=== PATIENT | male | born 1935 | race Caucasian/White ===

== ENCOUNTER 2021-11-20 10:26 | Inpatient (IN) | payer MEDICARE, OTHER ==
[~2021-11-20] VITALS: Ht 180.3 cm; Wt 77.6 kg
[2021-11-20] VITALS (338 sets, daily range): BP systolic 85–141; BP diastolic 41–82; PULSE 100–120; TEMP 97.3–98; O2SAT 88–100
[2021-11-20] MEDS ORDERED: VITAMIND3 5000 PO (11:09)
[2021-11-20] MEDS ORDERED: ASPIRIN 81M81 MG/TA2 PO (11:10)
[2021-11-20] MEDS ORDERED: NORVASC 5MG5 MG/TAB PO (11:10)
[2021-11-20] MEDS ORDERED: OMEGA-3 FISH1000 MG PO (11:10)
[2021-11-20] MEDS ORDERED: PLAVIX 75MG TAB75 MG PO (11:11)
[2021-11-20] MEDS ORDERED: COREG 25MG25 MG/TAB PO (11:11)
[2021-11-20] MEDS ORDERED: AVODART 0.5MG0.5 MG PO (11:12)
[2021-11-20] MEDS ORDERED: VITAMIN B11000 MCG/M IM (11:12)
[2021-11-20] MEDS ORDERED: BENICAR40 MG PO (11:13)
[2021-11-20] MEDS ORDERED: SYNTHROID0.125 MG/T PO (11:13)
[2021-11-20] MEDS ORDERED: LIPITOR 40MG TA40 MG PO (11:14)
[2021-11-20] MEDS ORDERED: PROTONIX 40MG T40 MG PO (11:14)
[2021-11-20] MEDS ORDERED: DESYREL DIVIDO150 M1 PO (11:14)
--- NOTE | 2021-11-20 13:30 | NUR ---
Patient admitted to room 323 from [facility]. He is alert & oriented. Minimal complaints of pain, but reports sore throat from tube he had at [facility]. med rec completed from [facility] paperwork, he reports he had a list at there facility. Hospitalist & rounded orders obtained & plan of care reviewed. Medications given per orders and tele on. Patient tachycardic and requring O2, which is new for patient. Ekg completed as well as breathing treatment by RT. Plans for OR this afternoon, he remains NPO. He was provided with bedbath, refused to brush his teeth reports he may vomit if he does. Will monitor
--- NOTE | 2021-11-20 15:41 | NUR ---
Patient to the Or with Xiao. His family to Or waiting room. Ivf to gravity. Will await his return.
--- NOTE | 2021-11-20 17:04 | NUR ---
Report called to [facility] nurse Chelo. Patient Belongings taken to [facility] by Yana Pacu nurse.
[2021-11-20 23:17] LABS: ARTERIAL BLD GAS O2 SATURATION 95.5 % (92-100); ARTERIAL BLD GAS TCO2 CT 21.2; ARTERIAL BLOOD GAS HCO3 20.2 meq/L (22-26); ARTERIAL BLOOD GAS PCO2 33.6 mmHg (35-45); ARTERIAL BLOOD GAS PO2 83.5 mmHg (80-100)
[2021-11-21] VITALS (1434 sets, daily range): BP systolic 91–125; BP diastolic 46–57; PULSE 70–98; TEMP 97–98.1; O2SAT 98–100
--- NOTE | 2021-11-21 05:13 | NUR ---
SEDATION VACATION PATIENT WOKE UP EASILY OFF OF SEDATION. PATIENT FOLLOWS COMMANDS AND IS APPROPRIATE WITH YES AND NO ANSWERS. PATIENT IS NOT IMPULSIVE. PATIENT TOLERATED FOR FULL 30 MINUTES. SEDATION RESUMED.
[2021-11-21 05:38] LABS: ARTERIAL BLD GAS O2 SATURATION 98.9 % (92-100); ARTERIAL BLD GAS TCO2 CT 20.8; ARTERIAL BLOOD GAS BASE EXCESS -4.7 (-2-2); ARTERIAL BLOOD GAS HCO3 19.7 meq/L (22-26); ARTERIAL BLOOD GAS PCO2 33.8 mmHg (35-45); ARTERIAL BLOOD GAS pH 7.38 (7.35-7.45)
[2021-11-21 05:40] LABS: ARTERIAL BLOOD GAS PO2 161.9 mmHg (80-100)
[2021-11-21 06:09] LABS: MEAN CELL VOLUME 97 fl (80.0-100.0); MEAN CORPUSCULAR HGB CONC 34 g/dl (33.0-37.0); PLATELET COUNT 194 K/mm3 (130-400); RED BLOOD COUNT 2.76 M/mm3 (4.20-5.60); REDCELL DISTRIBUTION WIDTH-CV 13.1 % (11.5-14.5)
[2021-11-21 06:14] LABS: HEMATOCRIT 26.7 % (42.0-52.0); HEMOGLOBIN 9.1 g/dl (13.5-18.0); MEAN CORPUSCULAR HEMOGLOBIN 33 pg (27-31)
[2021-11-21 06:33] LABS: BAND 32 % (0-10); LYMPHOCYTE 22 % (20.0-51.0); NEUTROPHILS 40 % (42.0-75.2)
[2021-11-21 06:34] LABS: BURR CELLS 1+; OVALOCYTES 1+; PLATELET ESTIMATE NORMAL (NORMAL); SCHISTOCYTES 1+
[2021-11-21 06:35] LABS: ALBUMIN 2.1 gm/dL (3.4-4.8); BILIRUBIN,TOTAL 0.7 mg/dL (0.2-1.2); CALCIUM 7.9 mg/dL (8.4-10.2); CREATININE, serum 3.54 mg/dL (0.72-1.25); MAGNESIUM 1.4 mg/dL (1.6-2.6); POTASSIUM 3.2 mmol/L (3.5-4.5); TOTAL PROTEIN 4.7 gm/dL (6.2-8.1)
--- NOTE | 2021-11-21 07:00 | NUR ---
REPORT RECEIVED FROM SADAF GOSS. PT INTUBATED AND SEDATED AT THIS TIME; 7.0 ETT 22CM AT LIP WITH CURRENT VENT SETTINGS; AC MODE, TV 500, PEEP 8, FIO2 40%, AND RATE OF 20. PT ACCEPTING MECHANICAL VENTILATION. NG TUBE 55CM AT LEFT NARE; NG TO LIS. RIJ TLC IN PLACE WITH MEDICATIONS INFUSING; SEE GTT FLOW SHEET. 20G PIV TO RIGHT WRIST. LEFT RADIAL ART LINE IN PLANCE. FC TO DEPENDENT DRAINAGE. BILATERAL SOFT WRIST RESTRAINTS IN PLACE. ABDOMINAL LAP SITES X3 COVERED WITH BANDAIDS; NO DRAINAGE OR REDNESS PRESENT. PT APPEARS TO BE RESTING COMFORTABLY; NO S/S DISCOMFORT.
--- NOTE | 2021-11-21 10:32 | NUR ---
The patient was placed on the ventilator after surgery yesterday. He remains intubated. The patient's son, Maxx (ph#[phone]), is at bedside. SW met with Maxx to complete intake. The patient lives alone in [place]. Maxx states that the patient has been independent prior to hospitalization and does not have any DME. The patient's PCP is Dr. Paulo Hyde. Maxx states that the patient has a financial DPOA and that the patient designated him, but he is unsure if the patient ever completed a DPOA-HC. Maxx states that the patient is and that he has two children: himself and Zane (ph#[phone]). Maxx states that the patient and Zane do not get along well, but that he still talks to Zane and has kept him up-to-date on the patient's status here. SW informed Maxx that him and Zane are both the patient's legal next of kin, if there is not a DPOA-HC. Maxx verbalized understanding. Maxx states that the patient and him were talking about the patient going to rehab, prior to being admitted. They are interested in a facility closer to where Maxx lives. Maxx lives in [place]. He states that they would prefer 1) [facility] 2) [facility]. YULISSA contacted and faxed a referral to Prerna at [facility]. YULISSA attempted to contact [facility]. YULISSA left them a voicemail and faxed over the referral. Awaiting screens. YULISSA contacted registration at [facility]. The vacuum drum drier operator reports that they do have a DPOA-HC on file for the patient and will fax it to the ICU. The vacuum drum drier operator states that the form designates Zane. [facility]: [facility] ph#[phone], fx#[phone] [facility]: ph#[phone], fx#[phone] *Discharge plan: SB or SNF*
--- NOTE | 2021-11-21 13:02 | NUR ---
SW received the patient's DPOA-HC, via fax. The patient's DPOA-HC is his son, Maxx Ray, and his step-daughter, Erica Balbuena (ph#[phone]). SW to place the document in the patient's chart and update the patient's RN.
--- NOTE | 2021-11-21 16:36 | NUR ---
Glendy, at [facility], states that they are at capacity at this time and unable to take the patient at this time.
--- NOTE | 2021-11-21 17:53 | NUR ---
PT ABLE TO FOLLOW COMMANDS AND ANSWER QUESTIONS WITH EASE; NO SEDATION VACATION NEEDED AT THIS TIME.
[2021-11-21 18:36] LABS: CALCIUM 7.6 mg/dL (8.4-10.2); CREATININE, serum 3.34 mg/dL (0.72-1.25)
--- NOTE | 2021-11-21 21:19 | NUR ---
BEDSIDE SHIFT REPORT RECEIVED FROM BHAVIK TALAVERA. PT CURRENTLY VENT/SEDATED. VENT SETTINGS APPROPRIATE ACCORDING TO REPORT. ALL LINES RUNNING APPROPRIATELY (SEE DRIP FLOW SHEET). SIDDIQI IN PLACE AND DRAINING APPROPRIATELY. VSS, NO ACUTE CHANGES AT THIS TIME.
[2021-11-22] VITALS (1410 sets, daily range): BP systolic 115–143; BP diastolic 45–74; PULSE 59–88; TEMP 97.1–97.8; O2SAT 98–100
[2021-11-22 05:10] LABS: ARTERIAL BLD GAS O2 SATURATION 98.1 % (92-100); ARTERIAL BLD GAS TCO2 CT 18.8; ARTERIAL BLOOD GAS BASE EXCESS -7.7 (-2-2); ARTERIAL BLOOD GAS HCO3 17.7 meq/L (22-26); ARTERIAL BLOOD GAS PCO2 35.1 mmHg (35-45); ARTERIAL BLOOD GAS PO2 126.8 mmHg (80-100); ARTERIAL BLOOD GAS pH 7.32 (7.35-7.45)
--- NOTE | 2021-11-22 05:26 | NUR ---
SEDATION VACATION NOT PERFORMED AT THIS TIME. PT IS ALERT AND FOLLOWING COMMANDS/ANSWERING QUESTIONS WHILE REMAINING CALM ON CURRENT LEVEL OF SEDATION
[2021-11-22 06:11] LABS: MEAN CELL VOLUME 98 fl (80.0-100.0); MEAN CORPUSCULAR HGB CONC 34 g/dl (33.0-37.0); MEAN PLATELET VOLUME 10.2 fl (7.4-10.4); PLATELET COUNT 138 K/mm3 (130-400); RED BLOOD COUNT 2.54 M/mm3 (4.20-5.60); REDCELL DISTRIBUTION WIDTH-CV 13.1 % (11.5-14.5)
[2021-11-22 06:14] LABS: HEMATOCRIT 24.8 % (42.0-52.0); HEMOGLOBIN 8.3 g/dl (13.5-18.0); MEAN CORPUSCULAR HEMOGLOBIN 33 pg (27-31)
[2021-11-22 06:27] LABS: ALBUMIN 1.9 gm/dL (3.4-4.8); BILIRUBIN,TOTAL 0.6 mg/dL (0.2-1.2); CALCIUM 7.2 mg/dL (8.4-10.2); CREATININE, serum 3.25 mg/dL (0.72-1.25); MAGNESIUM 2.1 mg/dL (1.6-2.6); PHOSPHOROUS 4.2 mg/dL (2.3-4.7); POTASSIUM 3.6 mmol/L (3.5-4.5); TOTAL PROTEIN 4.7 gm/dL (6.2-8.1)
[2021-11-22 06:48] LABS: BAND 31 % (0-10); LYMPHOCYTE 7 % (20.0-51.0); NEUTROPHILS 61 % (42.0-75.2); SCHISTOCYTES 1+
[2021-11-22 06:49] LABS: OVALOCYTES 1+; PLATELET ESTIMATE DECREASED (NORMAL)
--- NOTE | 2021-11-22 09:55 | NUR ---
YULISSA met with the patient's son, Maxx, to update about finding the [facility]- and of [facility]. Maxx reports that he would be open to the facility in [place] as another option. YULISSA contacted and faxed a referral to Karena at [facility] in [place]. [facility]: Karena, #[phone] fax#[phone]
--- NOTE | 2021-11-22 10:50 | NUR ---
Karena, at [facility], states that she received the referral and that they are able to accept the patient for a skilled stay. She states that the patient's son would need to look at getting the patient established with a PCP in [place] or [place], closer to them. YULISSA contacted and updated the patient's son, Maxx. Maxx verbalized understanding. He is still kind of looking at [facility] first, but states he would look at a PCP at the [facility]. SW to fax updates to [facility].
--- NOTE | 2021-11-22 18:26 | NUR ---
SEDATION VACATION NOT PERFORMED PATIENT IS COMFORTABLE, ANSWERS QUESTIONS, OPENS EYES SPONTANEOUSLY, FOLLOWS COMMANDS.
[2021-11-23] VITALS (1303 sets, daily range): BP systolic 97–172; BP diastolic 40–92; PULSE 60–93; TEMP 96.8–98.8; O2SAT 64–100
[2021-11-23 04:47] LABS: MEAN CELL VOLUME 97 fl (80.0-100.0); MEAN CORPUSCULAR HGB CONC 33 g/dl (33.0-37.0); MEAN PLATELET VOLUME 10.2 fl (7.4-10.4); PLATELET COUNT 95 K/mm3 (130-400); REDCELL DISTRIBUTION WIDTH-CV 13.2 % (11.5-14.5)
[2021-11-23 04:58] LABS: HEMATOCRIT 21.3 % (42.0-52.0); HEMOGLOBIN 7.1 g/dl (13.5-18.0); MEAN CORPUSCULAR HEMOGLOBIN 32 pg (27-31)
[2021-11-23 05:07] LABS: BAND 23 % (0-10); LYMPHOCYTE 2 % (20.0-51.0); NEUTROPHILS 73 % (42.0-75.2)
[2021-11-23 05:08] LABS: BURR CELLS 1+; PLATELET ESTIMATE NORMAL (NORMAL)
[2021-11-23 05:09] LABS: ARTERIAL BLD GAS O2 SATURATION 96.4 % (92-100); ARTERIAL BLD GAS TCO2 CT 20.6; ARTERIAL BLOOD GAS BASE EXCESS -5.3 (-2-2); ARTERIAL BLOOD GAS HCO3 19.5 meq/L (22-26); ARTERIAL BLOOD GAS PCO2 34.8 mmHg (35-45); ARTERIAL BLOOD GAS PO2 90.3 mmHg (80-100); ARTERIAL BLOOD GAS pH 7.37 (7.35-7.45)
[2021-11-23 05:10] LABS: ALBUMIN 1.6 gm/dL (3.4-4.8); BILIRUBIN,TOTAL 0.4 mg/dL (0.2-1.2); CALCIUM 7.3 mg/dL (8.4-10.2); CREATININE, serum 3.38 mg/dL (0.72-1.25); POTASSIUM 3.6 mmol/L (3.5-4.5); TOTAL PROTEIN 4.2 gm/dL (6.2-8.1)
--- NOTE | 2021-11-23 05:19 | NUR ---
PATIENT IS ON LOW DOSES OF ANALGESIA/ CAN BE ALERT AND AWAKEN UP VERBAL STIMULI ALSO FOLLOW DIRECTIONS AND USES FACIAL EXPRESSIONS
[2021-11-23 05:33] LABS: MAGNESIUM 2.1 mg/dL (1.6-2.6)
--- NOTE | 2021-11-23 07:33 | NUR ---
RECEIVED BEDSIDE SHIFT REPORT FROM SADAF FRAZIER. PATIENT IS STILL SEDATED AND INTUBATED. VITAL SIGNS STABLE. SEE GTT TITRATION FLOWSHEET. WILL BE ASSESSING PATIENT'S ABILITY TO BREATHE ON HIS OWN PRIOR TO EXTUBATION. SIDDIQI CATHETER AND ALL INTRAVENOUS ACCESS STILL IN PLACE.
--- NOTE | 2021-11-23 10:08 | NUR ---
PATIENT'S SON AT BEDSIDE. GIVEN UPDATE AND ANSWERED QUESTIONS.
--- NOTE | 2021-11-23 11:05 | NUR ---
SPOKE TO SADAF HIGH ABOUT SEDATION AND PROCEEDED TO PLACE PT ON CPAP TRIAL OF 5/5 STILL REMAINING AT 30%. PT IS TOLERATING WELL AND SHOWING GOOD EFFORT. PT WILL REMAIN ON CPAP TRIAL TOLERATED OR UNTIL DIRECTED OTHERWISE.
--- NOTE | 2021-11-23 11:27 | NUR ---
CUT BACK ON SEDATION AND PATIENT IS MORE ALERT TO RESUME WEANING TRIAL. PATIENT TOLERATING BREATHING INDEPENDENTLY AND HITTING [employer]ARGET TITAL VOLUMES. BOTH SONS AT BEDSIDE. QUESTIONS ANSWERED.
--- NOTE | 2021-11-23 11:30 | NUR ---
COLLABORATING WITH MARIE LESTER ON PLAN FOR EXTUBATION TO KEEP PATIENT'S NUTRITIONAL NEEDS MET. THIS NURSE CALLED DR. SAHIKH FOR A REQUEST FOR A FULL LIQUID DIET SHOULD PATIENT BE EXTUBATED TODAY. HE IS AGREEABLE
--- NOTE | 2021-11-23 12:16 | NUR ---
RT CALLED TO BEDSIDE FOR EXTUBATION PER . PT EXTUABTED AND IS COMFORTABLY RESTING. PT EXTUBATED AT 1151.
--- NOTE | 2021-11-23 18:02 | NUR ---
SPOKE TO AILEEN RIVERS REGARDING PATIENT'S PLAN OF CARE. SWITCHED TO PO PAIN MEDICATION AND ACHS BLOOD SUGAR CHECKS.
[2021-11-23 18:47] LABS: HEMATOCRIT 29.1 % (42.0-52.0); HEMOGLOBIN 9.9 g/dl (13.5-18.0)
--- NOTE | 2021-11-23 19:40 | NUR ---
TX GIVEN VIA MASK, TOLERATED WELL.
--- NOTE | 2021-11-23 20:01 | NUR ---
CALL TO AILEEN GARCIA ABOUT RESTARTING PT'S HOME MEDICATIONS, ESPECIALLY HOME BP MEDS BP 172/88 AT THIS TIME.
--- NOTE | 2021-11-23 20:15 | NUR ---
PT CRYING OUT IN PAIN, STATES ABDOMEN BURNING, HURTING SO BAD. MORPHINE AND ZOFRAN GIVEN PER PRN ORDER, PT REPOSITIONED TO LEFT SIDE TO ASSIST WITH GAS MOVEMENT, GIVEN WARM BLANKET TO LAY OVER ABDOMEN. WILL CONTINUE TO MONITOR AND FOLLOW UP IF MEDICATION NOT EFFECTIVE.
--- NOTE | 2021-11-23 21:56 | NUR ---
PT ASSISTED INTO RECLINER, USING GAIT BELT AND 2 PERSON ASSIST. PT STOOD AND TRANSFERRED WELL. PT HOPING TO ALLEVIATE DISCOMFORT BY SITTING UP. HAS BELCHED SOME, TRYING TO PASS FLATUS. WILL CONTINUE TO MONITOR.
[2021-11-24] VITALS (711 sets, daily range): BP systolic 136–150; BP diastolic 62–87; PULSE 63–82; TEMP 97–98.7; O2SAT 72–100
--- NOTE | 2021-11-24 04:18 | NUR ---
PT STILL UP IN CHAIR, PREFERS FOR COMFORT AND DOES NOT WANT TO GO BACK TO BED. FEELS COOL, BUT STATES IS COMFORTABLE AND DOES NOT NEED ADDITIONAL BLANKETS. PT HAS BEEN TALKING ABOUT SEEING MASSIMO AND REMEMBERING HIS . DENIES PAIN OR DISCOMFORT. VSS. WILL CONTINUE TO MONITOR.
[2021-11-24 04:38] LABS: HEMOGLOBIN 10.2 g/dl (13.5-18.0); MEAN CELL VOLUME 93 fl (80.0-100.0); MEAN CORPUSCULAR HEMOGLOBIN 32 pg (27-31); MEAN CORPUSCULAR HGB CONC 35 g/dl (33.0-37.0); MEAN PLATELET VOLUME 10.5 fl (7.4-10.4); PLATELET COUNT 82 K/mm3 (130-400); RED BLOOD COUNT 3.15 M/mm3 (4.20-5.60); REDCELL DISTRIBUTION WIDTH-CV 14.3 % (11.5-14.5)
[2021-11-24 04:51] LABS: CREATININE, serum 3.28 mg/dL (0.72-1.25); POTASSIUM 3.6 mmol/L (3.5-4.5)
[2021-11-24 05:11] LABS: HEMATOCRIT 29.3 % (42.0-52.0)
[2021-11-24 05:40] LABS: BAND 1 % (0-10); LYMPHOCYTE 2 % (20.0-51.0); NEUTROPHILS 96 % (42.0-75.2)
[2021-11-24 05:41] LABS: BURR CELLS 1+; PLATELET ESTIMATE DECREASED (NORMAL)
--- NOTE | 2021-11-24 07:16 | NUR ---
RECEIVED BEDSIDE SHIFT REPORT FROM SADAF MELARA. PATIENT IS IN THE CHAIR RESTING WITH EYES CLOSED. PATIENT'S VITAL SIGNS ARE STABLE AND SIDDIQI CATHETER STILL AND CENTRAL LINES STILL IN PLACE, PATENT AND DRAINING TO GRAVITY/GOOD BLOOD RETURN. CALL LIGHT WITHIN REACH.
--- NOTE | 2021-11-24 10:19 | NUR ---
DR. GALLOWAY AT BEDSIDE TO SEE PATIENT. GOT PERMISSION TO PULL URINARY CATHETER. GIVEN UPDATE AND PLAN OF CARE DISCUSSED. AGREEABLE FOR TRANSFER TODAY TO MED/SURG FLOOR.
--- NOTE | 2021-11-24 15:42 | NUR ---
Pt. escorted to Surg. Unit by ICU nursing staff. Pt. assisted to recliner. Three lap sites noted, covered by bandaids that are CDI. Pt. is alert and oriented to self and place. Daughter has accompainied pt. to unit - orientation to room provided to pt. and daughter. Call light is within his reach
--- NOTE | 2021-11-24 17:55 | NUR ---
Per hand off report, pt's cutler was dc'd this morning. Pt. has not yet urinated. Bladder scan performed and was noted have approx 140 mL urine. Pt. reports a "slight" sensation to urinate but is unsure if he can urinate at this time. Will continue to monitor
--- NOTE | 2021-11-24 18:48 | NUR ---
Pt. assisted from recliner to bed. Bed alarm is turned on. Pt. denies the urge to urinate. Denies pain or discomfort. Call light is within his reach.
--- NOTE | 2021-11-24 20:30 | NUR ---
PT IN BED, IS ALERT, ORIENTED X3. HAS RT PICC AND RIJ, LUMENS FLUSH WITHOUT PROBLEM. HAS EDEMA TO SCROTUM, PENIS AND LOWER LEGS. SCDS ON. PT HAS NOT VOIDED SINCE SIDDIQI REMOVED. DENIES PAIN. ABD DISTENDED WITH BANDAIDS X3 TO ABD. PASSING GAS.
[2021-11-25 00:12] VITALS: BP 156/78; PULSE 67; TEMP 97.3
--- NOTE | 2021-11-25 00:30 | NUR ---
PT ASSISTED TO BSC WITH MAX 2 ASSIST, ABLE TO VOID 300CC OF YELLOW URINE. GENITALS EDEMATOUS. BACK TO BED, URINAL AT BEDSIDE. DENIES PAIN.
[2021-11-25 04:34] VITALS: BP 148/76; PULSE 76; TEMP 97.5
--- NOTE | 2021-11-25 06:00 | NUR ---
PT ABLE TO USE URINAL WITH ASSIST, VOIDS 300CC YELLOW URINE. LABS DRAWN FROM RT PICC, IV ZOSYN INFUSING WITHOUT PROBLEM.
[2021-11-25 06:45] LABS: HEMOGLOBIN 11.4 g/dl (13.5-18.0); MEAN CELL VOLUME 92 fl (80.0-100.0); MEAN CORPUSCULAR HEMOGLOBIN 31 pg (27-31); MEAN CORPUSCULAR HGB CONC 34 g/dl (33.0-37.0); MEAN PLATELET VOLUME 11.2 fl (7.4-10.4); PLATELET COUNT 70 K/mm3 (130-400); RED BLOOD COUNT 3.65 M/mm3 (4.20-5.60); REDCELL DISTRIBUTION WIDTH-CV 14.2 % (11.5-14.5)
[2021-11-25 07:04] LABS: HEMATOCRIT 33.6 % (42.0-52.0)
[2021-11-25 07:09] LABS: ALBUMIN 1.8 gm/dL (3.4-4.8); BILIRUBIN,TOTAL 0.6 mg/dL (0.2-1.2); CALCIUM 8.3 mg/dL (8.4-10.2); CREATININE, serum 3.2 mg/dL (0.72-1.25); PHOSPHOROUS 3.3 mg/dL (2.3-4.7); POTASSIUM 3.7 mmol/L (3.5-4.5); TOTAL PROTEIN 4.8 gm/dL (6.2-8.1)
[2021-11-25 07:40] VITALS: BP 154/71; PULSE 79; TEMP 97.9
[2021-11-25 07:52] LABS: BAND 1 % (0-10); BURR CELLS 1+; LYMPHOCYTE 2 % (20.0-51.0); NEUTROPHILS 96 % (42.0-75.2); PLATELET ESTIMATE DECREASED (NORMAL); SCHISTOCYTES 2+
--- NOTE | 2021-11-25 08:34 | NUR ---
PT'S O2 SATS 85% ON 2L O2. PT ASKED TO COUGH ET BREATHE, HOB RAISED, SATS REMAIN LOW. OXYGEN INCREASED TO 4L, SATS INCREASE TO 90%. LUNGS SOUNDS ARE DIMINISHED.
[2021-11-25 08:39] LABS: PATHOLOGY DIFF REVIEW OK
--- NOTE | 2021-11-25 10:46 | NUR ---
PT SITTING UP IN RECLINER CHAIR @ THIS TIME. RESTING WITH EYES CLOSED. OXYGEN ON @ 4L, RESPIRATIONS UNLABORED. PT WAS PIVOT TRANSFERRED TO CHAIR WITH MAXIMUM 2 PERSON ASSIST ET GAIT BELT. PT REQUIRES LOTS OF ENCOURAGEMENT TO PARTICIPATE IN ACTIVITY. PT'S SPEECH IS SLURRED ET SOMETIMES DIFFICULT TO UNDERSTAND. PT IS ORIENTED TO PLACE, OFTEN STATES THAT HE DOES NOT KNOW WHAT IS GOING ON EXACTLY. ABDOMINAL INCISIONS ARE COVERED BY CDI BAND-AIDS. PT HAS BEEN INCONTINENT OF URINE X1, CIARA CARE COMPLETED ET LINENS CHANGED. PT HAS GENERALIZED PITTING EDEMA ON ALL EXTREMITIES ET ABDOMEN. CHAIR ALARM IS ON. CALL LIGHT WITHIN REACH.
[2021-11-25 11:28] VITALS: BP 132/76; PULSE 83; TEMP 97.9
[2021-11-25 15:54] VITALS: BP 114/78; PULSE 82; TEMP 97.3
--- NOTE | 2021-11-25 16:17 | NUR ---
PT WAS ASSISTED BACK INTO BED AFTER LUNCH. EGG MATTRESS WAS PLACED ON BED ET PT HAS BEEN REPOSITIONED Q 2HRS. PT STATES THAT HIS BOTTOM IS FEELING MUCH BETTER SINCE LAYING IN BED. PT'S SON HAS BEEN @ BEDSIDE THIS AFTERNOON, PT IS DROWSY ET OFTEN FALLS ASLEEP. PT HAS BEEN INCONTINENT OF URINE. RESPIRATIONS UNLABORED ON 4L NC. BED ALARM IS ON. CALL LIGHT WITHIN REACH.
--- NOTE | 2021-11-25 19:50 | NUR ---
TX GIVEN VIA MASK, TOLERATED WELL. PT ON 4L NC BEFORE AND AFTER TX.
--- NOTE | 2021-11-25 20:00 | NUR ---
PT FEELS NEED TO URINATE, VOIDS PER URINAL WITH ASSIST 400CC YELLOW URINE. PT REMAINS EDEMATOUS TO BLE, SCROTUM AND SACRUM. HAS RIJ AND RT PICC, FLUSHES WELL. WEARING OXYGEN 4L/NC.
[2021-11-25 20:09] VITALS: BP 142/59; PULSE 73; TEMP 97.8
[2021-11-26 00:28] VITALS: BP 132/59; PULSE 72; TEMP 97.5
[2021-11-26 04:52] VITALS: BP 141/54; PULSE 71; TEMP 97.7
--- NOTE | 2021-11-26 06:00 | NUR ---
PT HAS BEEN INCONTINENT AND VOIDED PER URINAL. OXYGEN REMAINS AT 4L/NC. RIJ WITH ZOSYN INFUSING WITHOUT PROBLEM. DENIES PAIN.
[2021-11-26 06:42] LABS: BASO % 0.3 % (0.0-2.0); EOS % 0.1 % (0.0-4.0); GRAN # 13.7 K/mm3 (1.4-6.5); GRAN % 89.6 % (42.2-75.2); LYMPH # 0.8 K/mm3 (1.2-3.4); LYMPH % 5.5 % (20.0-51.0); MEAN CELL VOLUME 93 fl (80.0-100.0); MEAN CORPUSCULAR HGB CONC 34 g/dl (33.0-37.0); MEAN PLATELET VOLUME 12.2 fl (7.4-10.4); MONO # 0.5 K/mm3 (0.1-0.6); MONO % 3.1 % (1.7-9.3); PLATELET COUNT 52 K/mm3 (130-400); RED BLOOD COUNT 2.73 M/mm3 (4.20-5.60)
[2021-11-26 06:43] LABS: HEMATOCRIT 25.5 % (42.0-52.0); HEMOGLOBIN 8.7 g/dl (13.5-18.0); MEAN CORPUSCULAR HEMOGLOBIN 32 pg (27-31)
[2021-11-26 07:05] LABS: ALBUMIN 2.5 gm/dL (3.4-4.8); CALCIUM 8.2 mg/dL (8.4-10.2); CREATININE, serum 3.36 mg/dL (0.72-1.25); MAGNESIUM 1.8 mg/dL (1.6-2.6); TOTAL PROTEIN 4.4 gm/dL (6.2-8.1)
[2021-11-26 07:47] VITALS: BP 115/92; BP 153/59; PULSE 67; TEMP 97.7
[2021-11-26 10:04] LABS: RETIC # 0.02 M/mm3 (0.02-0.16); RETIC % 0.7 % (0.5-3.52)
--- NOTE | 2021-11-26 11:38 | NUR ---
PT IS RESTING IN BED WITH EYES CLOSED, SLEEPS INTERMITTENTLY, HAS BEEN TURNED Q 2HRS, IS INCONTINENT OF URINE. PT IS ORIENTED TO PLACE, SPEECH IS GARBLED ET SLURRED. BANDAIDS ARE CDI TO 3 ABDOMINAL INCISIONS. WHILE TURNING PT, IT'S NOTED THAT PT HAS A SMALL OPEN SLIT ON HIS COCCYX. MEPILEX APPLIED ET PT IS STILL ON PRESSURE REDUCING MATTRESS. BARRIER CREAM IS ALSO BEING USED FOR INCONTINENCE. PT DENIES ANY PAIN, STATES THAT HE HAS OCCASIONAL ABDOMINAL PAIN THAT'S RELIEVED WHEN HE PASSES GAS. PT TOLERATING LIQUIDS WITH NO NAUSEA. BED ALARM IS ON. CALL LIGHT WITHIN REACH.
[2021-11-26 11:50] VITALS: BP 144/59; PULSE 68; TEMP 98.5
--- NOTE | 2021-11-26 15:10 | NUR ---
Body Shop Technician contacted [facility] and was advised they are at capacity and would have to decline referral. YULISSA contacted Karena at [facility] and faxed clinical updates. Karena advised they can accept as long as patient is set up with a more local PCP. YULISSA contacted Maxx with the above update. Maxx advised he plans to take some time off of work tomorrow to work out some of these things. YULISSA advised [facility] could not accept so we would be looking at discharge to [facility] and Maxx verbalized understanding. Maxx would like to get patient set up with [facility] if possible. YULISSA contacted [facility] and they are accepting new patients and would just need Maxx to contact them and fill out new patient paperwork. YULISSA notified Maxx of this and he will work on it tomorrow. Discharge Plan: [facility]
[2021-11-26 16:00] VITALS: BP 143/83; BP 161/92; PULSE 64; PULSE 91; TEMP 97.2; TEMP 98.2
--- NOTE | 2021-11-26 18:15 | NUR ---
PT IS RESTING IN BED, RESPIRATIONS UNLABORED ON 4L NC. IJ TRIPLE LUMEN HAS BEEN REMOVED, PRESSURE WAS HELD FOR 15 MINUTES THEN PRESSURE DRESSING WAS APPLIED. PT IS ORIENTED, HAS BEEN ASLEEP MOST OF DAY, DOES AWAKEN EASILY TO NAME. PT HAS BEEN TOLERATING CLEAR LIQUIDS WELL WITH NO NAUSEA, DENIES ANY PAIN. PT HAS BEEN INCONTINENT OF URINE ET TURNED Q 2HRS IN BED. BED LAARM IS ON. CALL LIGHT WITHIN REACH.
[2021-11-26 19:28] LABS: HEMATOCRIT 28.6 % (42.0-52.0); HEMOGLOBIN 9.6 g/dl (13.5-18.0)
[2021-11-26 20:25] VITALS: BP 165/68; PULSE 68; TEMP 98.5
[2021-11-27 00:14] VITALS: BP 148/71; PULSE 67; TEMP 98.2
[2021-11-27 04:22] VITALS: BP 149/68; PULSE 66; TEMP 98.8
[2021-11-27 05:57] LABS: HEMOGLOBIN 10.3 g/dl (13.5-18.0); MEAN CELL VOLUME 93 fl (80.0-100.0); MEAN CORPUSCULAR HEMOGLOBIN 32 pg (27-31); MEAN CORPUSCULAR HGB CONC 34 g/dl (33.0-37.0); MEAN PLATELET VOLUME 11.5 fl (7.4-10.4); PLATELET COUNT 77 K/mm3 (130-400); RED BLOOD COUNT 3.25 M/mm3 (4.20-5.60); REDCELL DISTRIBUTION WIDTH-CV 13.7 % (11.5-14.5)
--- NOTE | 2021-11-27 05:57 | NUR ---
RESTED THROUGH THE NIGHT WITHOUT INCIDENT. NO BM. TOLERATING CLEARS ONLY TONIGHT. CALL LIGHT WI REACH.
[2021-11-27 06:04] LABS: HEMATOCRIT 30.1 % (42.0-52.0)
[2021-11-27 06:11] LABS: ALBUMIN 2.5 gm/dL (3.4-4.8); CALCIUM 8.8 mg/dL (8.4-10.2); CREATININE, serum 3.6 mg/dL (0.72-1.25); POTASSIUM 3.9 mmol/L (3.5-4.5); TOTAL PROTEIN 4.6 gm/dL (6.2-8.1)
[2021-11-27 06:50] LABS: BAND 3 % (0-10); EOSINOPHIL 1 % (0-4); LYMPHOCYTE 2 % (20.0-51.0); NEUTROPHILS 89 % (42.0-75.2)
[2021-11-27 06:51] LABS: BURR CELLS 1+; PLATELET ESTIMATE DECREASED (NORMAL)
[2021-11-27 07:24] VITALS: BP 149/72; PULSE 64; PULSE 98; TEMP 98.8
--- NOTE | 2021-11-27 11:19 | NUR ---
Patient alert to self. VSS. Patient here for SBO/lysis of adhesions. Patient reports pain 08/08. Assessment performed. AM meds administered. Bowel sounds active. Morning hygiene performed. Patient incontinent of urine. SCD's applied, heels raised. Call light within reach.
[2021-11-27 11:33] VITALS: BP 149/70; PULSE 66; TEMP 97
[2021-11-27 15:27] VITALS: BP 162/86; PULSE 71; TEMP 97.8
--- NOTE | 2021-11-27 16:14 | NUR ---
Central Office Frame Wirer reviewed note from Dr. Srinivasan this morning and his recommendation if for referral to [facility]. YULISSA met with patient and patient's son, Maxx who is at bedside. Patient was sleeping during this interaction and Maxx advised patient has had a difficult time staying awake. YULISSA discussed recommendation for [facility] and Maxx is agreeable to this if patient can go to the [place] location. YULISSA contacted Hector at [facility] and faxed referral. Hector advised patient meets criteria and that there may be a bed available tomorrow at [facility]. YULISSA updated patient's son, Maxx. YULISSA contacted Karena at [facility] and faxed updates. YULISSA advised Karena that patient may go to [facility], but that she will keep her posted. Discharge Plan: [facility]
[2021-11-27 21:02] VITALS: BP 130/73; PULSE 79; TEMP 97.6
[2021-11-28 00:08] VITALS: BP 116/65; PULSE 69; TEMP 97.5
--- NOTE | 2021-11-28 03:26 | NUR ---
PATIENT IN BED. ALERT BUT CONFUSED. C/O GERD AND HAVING REFLUX AT SHIFT CHANGE. PRN ZOFRAN GIVEN WITH LITTLE RELIEF. CALL TO LOVELY CASIANO AND ORDER FOR PROTONIX BID. X3 LAPS TO ABD CDI WITH BANDAIDS. COCCYX REDDENED AND MEPILEX APPLIED.
[2021-11-28 04:28] VITALS: BP 119/58; PULSE 70; TEMP 97.6
[2021-11-28 06:31] LABS: HEMOGLOBIN 10.7 g/dl (13.5-18.0); MEAN CELL VOLUME 95 fl (80.0-100.0); MEAN CORPUSCULAR HEMOGLOBIN 32 pg (27-31); MEAN CORPUSCULAR HGB CONC 34 g/dl (33.0-37.0); MEAN PLATELET VOLUME 12.3 fl (7.4-10.4); PLATELET COUNT 118 K/mm3 (130-400); RED BLOOD COUNT 3.37 M/mm3 (4.20-5.60); REDCELL DISTRIBUTION WIDTH-CV 13.9 % (11.5-14.5)
[2021-11-28 06:33] LABS: HEMATOCRIT 31.9 % (42.0-52.0)
[2021-11-28 06:53] LABS: ALBUMIN 2.2 gm/dL (3.4-4.8); BILIRUBIN,TOTAL 0.8 mg/dL (0.2-1.2); CALCIUM 8.8 mg/dL (8.4-10.2); CREATININE, serum 3.92 mg/dL (0.72-1.25); POTASSIUM 4.6 mmol/L (3.5-4.5); TOTAL PROTEIN 4.6 gm/dL (6.2-8.1)
[2021-11-28 07:14] LABS: BAND 1 % (0-10); EOSINOPHIL 1 % (0-4); LYMPHOCYTE 5 % (20.0-51.0); NEUTROPHILS 93 % (42.0-75.2); PLATELET ESTIMATE DECREASED (NORMAL)
[2021-11-28 07:15] LABS: BURR CELLS 1+
[2021-11-28 07:45] VITALS: BP 123/63; PULSE 64; TEMP 97.5
--- NOTE | 2021-11-28 10:00 | NUR ---
Assessment compelted, drowsy but arousable, vital signs stable, denies pain, patient stated "does not feel like he is going to make it", abd is dsitneded and bowel sounds hypoactive, denies BM or flatus, WBC spike to >30 and is aware and has placed orders for eval, creat trending up and IVF ordered, placed on IV Zosyn, PICC in place to ESTRELLA, will continue to monitor
[2021-11-28 11:37] VITALS: BP 114/53; PULSE 66; TEMP 97.8
--- NOTE | 2021-11-28 12:57 | NUR ---
Pile Operator collaborated with Hospitalist who advised patient is not ready for discharge at this time. YULISSA updated Hector at [facility] who advised bed availability should not be an issue in [place] moving forward. Hector obtained verbal updates from patient's RN. YULISSA contacted patient's son, Maxx to provide above update. YULISSA also updated Karena at [facility] that DC plan is for [facility], but will update her again if this changes. Discharge Plan: [facility]
[2021-11-28 15:19] VITALS: BP 103/68; PULSE 71; TEMP 98
--- NOTE | 2021-11-28 15:52 | NUR ---
TAKING OVER PT CARE FROM GITA TALAVERA AT THIS TIME.
[2021-11-28 18:35] LABS: MUCOUS Present (NOT PRESENT); PH 5 (5-8); SQUAMOUS EPITHELIAL 0-2 /hpf (0-10); URINE APPEARANCE Clear (CLEAR/HAZY); URINE BACTERIA None Seen /hpf (NONE SEEN); URINE BILIRUBIN Negative (NEGATIVE); URINE BLOOD Negative (NEGATIVE); URINE COLOR Yellow (YELLOW); URINE GLUCOSE Negative (NEGATIVE); URINE KETONE Negative (NEGATIVE); URINE LEUKOCYTE ESTERASE Negative (NEGATIVE); URINE NITRATE Negative (NEGATIVE); URINE PROTEIN(semi-quant) Negative (NEGATIVE); URINE RBC 0-2 /hpf (0-2); URINE UROBILINOGEN Negative (NEGATIVE)
[2021-11-28 19:19] LABS: COLLECTION METHOD CLEAN CATCH
[2021-11-28 20:08] VITALS: BP 104/58; PULSE 69; TEMP 98.3
[2021-11-29 00:45] VITALS: BP 115/60; PULSE 74; TEMP 98.4
--- NOTE | 2021-11-29 02:19 | NUR ---
Pt has had an uneventful shift thus far. Pt has been pleasant and cooperative with Q2 turns. Assessment and medication pass completed without difficulty. Lap sites are well approximated and covered with bandaids at the moment. PICC in R upper arm is flushing and pulling blood withouth difficulty. Pt has had no complaints thus far this shift. No complaints of pain, call light within reach.
[2021-11-29 04:02] VITALS: BP 122/60; PULSE 72; TEMP 98.3
--- NOTE | 2021-11-29 06:45 | NUR ---
Report received, assumed care for day shift.
[2021-11-29 07:15] VITALS: BP 125/59; PULSE 74; TEMP 94.4
[2021-11-29 07:52] LABS: MEAN CELL VOLUME 94 fl (80.0-100.0); MEAN CORPUSCULAR HGB CONC 33 g/dl (33.0-37.0); MEAN PLATELET VOLUME 11.6 fl (7.4-10.4); PLATELET COUNT 146 K/mm3 (130-400); RED BLOOD COUNT 3.15 M/mm3 (4.20-5.60); REDCELL DISTRIBUTION WIDTH-CV 13.9 % (11.5-14.5)
[2021-11-29 07:53] LABS: HEMATOCRIT 29.6 % (42.0-52.0); HEMOGLOBIN 9.9 g/dl (13.5-18.0); MEAN CORPUSCULAR HEMOGLOBIN 31 pg (27-31)
--- NOTE | 2021-11-29 08:25 | NUR ---
AILEEN Gonzalez notified of critical white count.
[2021-11-29 08:26] LABS: ALBUMIN 2.1 gm/dL (3.4-4.8); BILIRUBIN,TOTAL 0.7 mg/dL (0.2-1.2); CALCIUM 8.7 mg/dL (8.4-10.2); POTASSIUM 4.6 mmol/L (3.5-4.5); TOTAL PROTEIN 4.5 gm/dL (6.2-8.1)
[2021-11-29 08:39] LABS: BAND 3 % (0-10); LYMPHOCYTE 2 % (20.0-51.0); NEUTROPHILS 89 % (42.0-75.2)
[2021-11-29 08:40] LABS: BURR CELLS 2+; OVALOCYTES 1+; PLATELET ESTIMATE NORMAL (NORMAL); POIKILOCYTOSIS 2+
[2021-11-29 08:51] LABS: CREATININE, serum 4.36 mg/dL (0.72-1.25)
--- NOTE | 2021-11-29 10:48 | NUR ---
YULISSA completed rounds with physician. Informd Quynh would be consulted to assist with questions from family in regards to hospice. Quynh provided that she is aware of consult and will be speaking to family to answer questions. YULISSA will continue to follow.
--- NOTE | 2021-11-29 11:05 | NUR ---
Notified Speech Therapy of consult.
[2021-11-29 11:47] VITALS: BP 110/68; BP 87/73; PULSE 71; TEMP 98.7
--- NOTE | 2021-11-29 12:13 | NUR ---
Met with patient, his son, Maxx, and step-son, Jani at bedside. Patient was non-contributory and appeared to be sleeping throughout our conversation. Maxx feels the since the patient is refusing any aggressive measures that hospice is appropriate and would like if the patient can be moved to [facility] in [place]. Provided [facility] hospice list for [place] as well. Also discussed comfort care while still here at [facility]. Maxx stated he just wants the patient comfortable and he is okay transitioning to comfort care. Notified hospitalist and YULISSA.
--- NOTE | 2021-11-29 15:25 | NUR ---
YULISSA called [facility] staff member Karena [phone]. YULISSA informed that patient and family discussed comfort measures and family wanted to know if patient could be on comfort measures at [facility]. Karena stated that she needed to speak to her to in regards to this request, due to the previous request being for a skilled stay. YULISSA will continue to follow.
--- NOTE | 2021-11-29 15:32 | NUR ---
YULISSA recieved call back from [facility] staff Karena [phone]. Karena states that most of the facility admin has left for the day and would not be able to make a determination if patient will be able to come to their facility under comfort measures until Thursday. YULISSA informed nurse, family and Quynh. YULISSA will continue to follow.
--- NOTE | 2021-11-29 16:05 | NUR ---
Repositioned in bed with pillow support. Denies pain/nausea/shortness of breath. Denies current needs. Call light in reach. Will monitor.
--- NOTE | 2021-11-29 16:37 | NUR ---
Patient had an uneventful day. Repositioned Q2H with pillow support when patient would allow. Family remained at bedside for most of the shift. Has been transitioned to comfort care. Denies current needs. Call light in reach. Will monitor.
--- NOTE | 2021-11-30 04:17 | NUR ---
Pt has had an uneventful shift thus far. Pt is currently on comfort cares. Tolerating nectar thick liquids without difficulty. Pt states that he is not in pain but that he feels "miserable". Q2 turns are still in affect and pt states that it helps with this "miserable" feeling. Pts personal care technician was at the bedside at the beginning of shift along with other family members. All other needs met at this time, call light within reach.
--- NOTE | 2021-11-30 08:48 | NUR ---
PT OFFERED ET REFUSED BREAKFAST @ THIS TIME. PT IS DROWSY BUT AWAKE, OPENS EYES WHEN THIS NURSE ENTERS ROOM. PT WAS REPOSITIONED @ 0730 IN BED WITH 2 ASSIST, PER PT REQUEST, WAS INCONTINENT OF URINE. BED ALARM IS ON. CALL LIGHT WITHIN REACH. OXYGEN ON @ 3L NC.
--- NOTE | 2021-11-30 13:19 | NUR ---
PT IN BED WITH HOB ELEVATED, FAMILY @ BEDSIDE. PT HAS BEEN TURNED IN BED Q 2HRS, HAS BEEN INCONTINENT OF URINE X2. PT DENIES PAIN OR FURTHER NEEDS WHEN ASKED. O2 ON @ 3L NC.
--- NOTE | 2021-12-01 01:18 | NUR ---
Pt remains on comfort cares and Q2 turns. Pt has been pleasant thus far this shift. No PRN medication has been needed, assessment completed without difficulty. Pt has tolerated ice chips throughout the shift and states that nectar thick liquids make his mouth "sticky". All other needs met at this time, call light within reach.
--- NOTE | 2021-12-01 05:12 | NUR ---
Pt had become restless and was asking staff to reposition more often than the Q2 that has been ordered. Pt also stated that he is having pain. PRN morphine and ativan were administered IV. Pt has tolerated medication well so far. Will continue to monitor.
--- NOTE | 2021-12-01 10:27 | NUR ---
PT RESTING IN BED, APPEARS TO NOT BE IN PAIN. PT AWAKENS TO NAME BUT SPEECH IS INAUDIBLE ET PT CLOSES EYES AGAIN QUICKLY. BREATHING PATTERN IS MORE SHALLOW ET NOISY TODAY, PT IS MOUTH BREATHING. PT HAS BEEN TURNED ET REPOSITIONED Q 2HRS. ORAL CARE COMPLETED ET CHAPSTICK APPLIED.
--- NOTE | 2021-12-02 10:57 | NUR ---
YULISSA attempted to contact Karena at [facility] to follow up on whether they can accept the patient or not on hospice. YULISSA left her a voicemail.
--- NOTE | 2021-12-02 15:06 | NUR ---
YULISSA attempted to contact [facility] two more times and left another message. YULISSA has not heard back from [facility] yet. YULISSA updated the patient's son, Maxx. Maxx states that he had stopped by the facility this morning and left his name and number with a staff member. He states that the marriage and family social worker was not in when he stopped by. Maxx states that he will try and call them now as well.
--- NOTE | 2021-12-02 15:50 | NUR ---
YULISSA met with Maxx. Maxx states that he called [facility], but was also unable to get ahold of the community mental health social worker. With the patient's current status, YULISSA inquired if [facility]x still felt comfortable transporting the patient, if they could accept, or if we would be look at ambulance transfer. Maxx states he would would be looking at ambulance transport. YULISSA informed him that an ambulance transport to [facility] would be private pay. Maxx verbalized understanding. YULISSA discussed the option of looking at a facility closer to [place] and informed him of [facility]. Maxx believes that the patient is closer to passing away now and he does not mind the drive. Maxx states that he would prefer and rather look at [facility] now. YULISSA then received a phone call from Karena at [facility]. Karena states that they would be able to accept the patient on Thursday, but that he would have a semi-private room now. YULISSA updated Maxx. Maxx states that he would just like pursue with [facility]. YULISSA contacted and emailed a referral to Sanchez at [facility]. Sanchez states that they do have rooms available. They are tentatively expecting another admission tomorrow, but will review the referral and check if they can take the patient tomorrow.
--- NOTE | 2021-12-02 17:11 | NUR ---
PATIENT CONTINUES TO DECLINE. PLACED ON COMFORT MEASURES PER FAMILY. PENDING PLACEMENT AT [facility]. NO SOLID OR LIQUID INTAKE THIS SHIFT. NO BOWEL MOVEMENT. SCANT URINE OUTPUT. VITALS STABLE. PATIENT RESPONDS TO PAINFUL STIMULI, NOT SPEAKING.
--- NOTE | 2021-12-02 20:00 | NUR ---
Pt. laying in bed. Pt. is A&OX3 at this time. Pt. able to voice no pain. Shift assessment complete. PICC to rt. upper arm patent. Pt. denies needs. Will continue with comfort care measures.
[2021-12-02 21:21] VITALS: BP 130/73; PULSE 85; TEMP 99
--- NOTE | 2021-12-03 06:49 | NUR ---
resting in bed and appears to doze at intervals, bedside shift report received from SADAF Wayne
--- NOTE | 2021-12-03 08:40 | NUR ---
daughter in to visit and he tells her that he is having a lot of pain, medicated with roxanol 10mg po, he is alert and talking and also says he is uncomfortable, repositioned over to right side, skin is warm and dry
--- NOTE | 2021-12-03 09:25 | NUR ---
daughter calls and states he is still haviang terrible pain, he is holding his stomach and moving his legs about, he does tell this nurse he is still having pain, medicated with rosanol 10mg sl
--- NOTE | 2021-12-03 10:15 | NUR ---
continues to c/o pain and requesting something else for pain, medicated with roxanol 10mg sl, daughter remains at bedside
--- NOTE | 2021-12-03 10:15 | NUR ---
appears to now be sleeping, eyes closed, resp quiet and easy
--- NOTE | 2021-12-03 11:30 | NUR ---
repositioned to left side, medicated with roxanol 10mg for c/os pain
--- NOTE | 2021-12-03 12:15 | NUR ---
resting with eyes closed, resp quiet and easy
--- NOTE | 2021-12-03 13:19 | NUR ---
remains resting, daughter states he is doing better
--- NOTE | 2021-12-03 13:31 | NUR ---
Sanchez, at [facility], reports that they are able to accept the patient tomorrow, 12/04. Sanchez plans to contact Maxx today. YULISSA contacted Maxx and updated him on [facility]'s acceptance tomorrow. Maxx is in agreement to the plan. *[facility]charge plan: [facility]*
--- NOTE | 2021-12-03 15:00 | NUR ---
continues to appear to sleep
--- NOTE | 2021-12-03 16:15 | NUR ---
remains in bed and appears to continue to sleep, daughter in chair at bedside
--- NOTE | 2021-12-03 18:53 | NUR ---
bedside shift report given to SADAF Wayne and SADAF Lindo
--- NOTE | 2021-12-03 21:00 | NUR ---
PT LAYING IN BED ON LEFT SIDE WITH PILLOWS WEDGE. PT NOTED TO HAVE EXPIRATORY WHEEZES AND BE MOANING. PT SEEMING TO BE PAINFUL.
--- NOTE | 2021-12-04 06:57 | NUR ---
Report received, assumed care for day shift. Assessment complete. Resting with eyes closed. NO s/s of pain or discomfort. Opens eyes to voice but not following commands/answering questions. Discussed plan of continued comfort care. Call light in reach. Will monitor.
[2021-12-04] MEDS ORDERED: ATIVAN 1MG T1 MG/TAB PO ×2 (07:12)
[2021-12-04] MEDS ORDERED: ROXANOL 20MG20 MG/ML SL ×2 (07:12)
--- NOTE | 2021-12-04 07:50 | NUR ---
Patient noted to have no heart rate/respirations. Verified by SADAF Ramos and Harjit TALAVERA. Notified mix house tender and AILEEN Gonzalez.
--- NOTE | 2021-12-04 07:54 | NUR ---
PRIMARY NURSE CHATO NOTIFIED THIS NURSE OF PT PASSING VERIFIED WITH SIENNA RN @1104. NOTIFIED ENERGY CONSERVATION TECHNICIAN AND PAUL GALLAGHER.
--- NOTE | 2021-12-04 08:08 | NUR ---
NOTIFIED ESSENCE GORE SON OF PT PASSING.
--- NOTE | 2021-12-04 08:48 | NUR ---
POST MORTEM CARES PROVIDED BY STAFF.
--- NOTE | 2021-12-04 09:01 | NUR ---
Call placed to [facility]. Patient is not a candidate for donation of tissue of eye due to age. Confirmation [id number]. Son is on his way; will await his arrival for home.
--- NOTE | 2021-12-04 09:10 | NUR ---
Dr. Barrett pelaezied of patients time of this AM. All questions answered.
--- NOTE | 2021-12-04 10:24 | NUR ---
The patient this morning. Animal Care Specialist was notified and [facility] contacted. The patient is not a candidate for donation. YULISSA met with the patient's son, Maxx, and provided support. Maxx would like to use the home [facility] in [place]. YULISSA contacted the home and they will be on their way soon. YULISSA updated the patient's RN. YULISSA updated Sanchez at [facility]. No additional needs at this time.
== END 2021-12-04 10:31 | disposition expired | DRG 329 ==
LOC: MEDICAL 10:26 → SURG 11:01 → ICU 11:01 → SURG 13:44 → ICU 18:25 → SURG 11-24 11:22
PROVIDERS: Internal Medicine; Internal Medicine Sleep Medicine; Physician Assistant; Registered Nurse; Student in an Organized Health Care Education/Training Program; ADMIT Surgery
PROC: 05HM33Z Insertion of Infusion Device into Right Internal Jugular Vein, Percutaneous Approach (ICD-10-PCS; 2021-11-20)
PROC: 5A1945Z Respiratory Ventilation, 24-96 Consecutive Hours (ICD-10-PCS; 2021-11-20)
PROC: 0BH17EZ Insertion of Endotracheal Airway into Trachea, Via Natural or Artificial Opening (ICD-10-PCS; 2021-11-20)
PROC: 0DQ84ZZ Repair Small Intestine, Percutaneous Endoscopic Approach (ICD-10-PCS; principal; 2021-11-20 16:00)
PROC: 0DNU4ZZ Release Omentum, Percutaneous Endoscopic Approach (ICD-10-PCS; 2021-11-20 16:00)
PROC: 02HV33Z Insertion of Infusion Device into Superior Vena Cava, Percutaneous Approach (ICD-10-PCS; 2021-11-21)
DX: K56.52 Intestinal adhesions [bands] with complete obstruction (principal); J96.01 Acute respiratory failure with hypoxia; J69.0 Pneumonitis due to inhalation of food and vomit; K91.71 Accidental puncture and laceration of a digestive system organ or structure during a digestive system procedure; E44.0 Moderate protein-calorie malnutrition; R18.8 Other ascites; N17.9 Acute kidney failure, unspecified; J44.1 Chronic obstructive pulmonary disease with (acute) exacerbation; Z66 Do not resuscitate; Z51.5 Encounter for palliative care; F17.210 Nicotine dependence, cigarettes, uncomplicated; I12.9 Hypertensive chronic kidney disease with stage 1 through stage 4 chronic kidney disease, or unspecified chronic kidney disease; N18.9 Chronic kidney disease, unspecified; I25.10 Atherosclerotic heart disease of native coronary artery without angina pectoris; K21.9 Gastro-esophageal reflux disease without esophagitis; I95.9 Hypotension, unspecified; E87.6 Hypokalemia; E83.42 Hypomagnesemia; I48.0 Paroxysmal atrial fibrillation; D69.6 Thrombocytopenia, unspecified; D64.9 Anemia, unspecified; K56.7 Ileus, unspecified; Y83.8 Other surgical procedures as the cause of abnormal reaction of the patient, or of later complication, without mention of misadventure at the time of the procedure; Z68.26 Body mass index [BMI] 26.0-26.9, adult; Z79.82 Long term (current) use of aspirin; Z95.5 Presence of coronary angioplasty implant and graft; Z86.73 Personal history of transient ischemic attack (TIA), and cerebral infarction without residual deficits
CPT/HCPCS: 99223; 99231-AI; 99232-AI; 99233-AI; A4314; A9284; C1751; C1892; J0282; J1644; J1815; J1940; J2060; J2270; J2370; J2405; J2543; J2704; J2920; J3010; J3475; J3480; J7030; J7040; J7050; J7060; J7120; P9016; P9047